=== PATIENT | female | born 2000 | race Caucasian/White ===

== ENCOUNTER 2022-01-27 09:06 | Emergency (ER) | payer OTHER ==
[~2022-01-27] VITALS: Ht 154.9 cm; Wt 61.2 kg
[2022-01-27 09:13] VITALS: BP 117/72
--- NOTE | 2022-01-27 09:27 | NUR ---
PT MOVED TO BED 12
--- NOTE | 2022-01-27 09:30 | NUR ---
21F presents to ED with c/o fevers, headache and back pain x3days, epigastric/ABD pain and N/V today. Pt reports a constant, throbbing like, 8/10 head pain, and a constant, sharp, 8/10 ABD and back pain. Pt reports unable to eat or drink anything today without vomiting. Pt states she took ibuprofen at 0500 today with no relief. Pt temp upon triage 101. Pt changed into gown and placed on bedside monitor.
[2022-01-27] MEDS ORDERED: NACL 0.9% 1,000 ML IV SCH (09:40)
[2022-01-27] MEDS ORDERED: KETOROLAC 30 MG/ML VIAL IVP ONE (09:40)
[2022-01-27] MEDS ORDERED: ONDANSETRON 4 MG/2 ML VIAL IVP ONE (09:40)
[2022-01-27] MEDS ORDERED: ACETAMINOPHEN EXTRA STRENGTH 500 MG TAB PO ONE (09:40)
[2022-01-27] MEDS ORDERED: DICYCLOMINE HCL LIQUID 20 MG, ALUMINUM HYD/MAG/SIMETHICONE 30 ML, LIDOCAINE VISCOUS 2% ... PO ONE ×3 (09:55)
--- NOTE | 2022-01-27 10:00 | NUR ---
Swabs and blood collected and walked to lab.
[2022-01-27] MEDS ORDERED: ALUMINUM HYD/MAG/SIMETHICONE 30 ML UDC ONE (10:11)
[2022-01-27] MEDS ORDERED: DICYCLOMINE HCL LIQUID 10 MG/5 ML UDC ONE (10:11)
[2022-01-27 10:29] LABS: BASOPHILS % (AUTO) 0.2 % (0.0-2.0); HEMATOCRIT 38.4 % (36-48); HEMOGLOBIN 12.9 g/dL (12.0-16.0); LYMPHOCYTES # (AUTO) 0.6 K/uL (2.5-16.5); LYMPHOCYTES % (AUTO) 5.4 % (20.5-51.1); MEAN CORPUSCULAR HEMOGLOBIN 29 pg (27-31); MEAN CORPUSCULAR HGB CONC 34 g/dL (33-37); MEAN CORPUSCULAR VOLUME 84.8 fL (80-94); MONOCYTES # (AUTO) 0.4 K/uL (0.8-1.0); MONOCYTES % (AUTO) 4.1 % (1.7-9.3); NEUTROPHILS # (AUTO) 9.4 K/uL (1.8-7.7); NEUTROPHILS % (AUTO) 90.3 % (42.2-75.2); PLATELET COUNT (AUTO) 272 K/uL (140-450); RED BLOOD CELL COUNT(AUTO) 4.53 MIL/uL (4.20-5.40); RED CELL DISTRIBUTION WIDTH 13.5 % (11.6-13.7); WHITE BLOOD COUNT (AUTO) 10.4 K/uL (4.5-11.0)
--- NOTE | 2022-01-27 10:30 | NUR ---
Pt states she is unable to provide urine at this time.
--- NOTE | 2022-01-27 10:48 | NUR ---
Pt ambulated with steady gait to restroom to provide urine sample.
[2022-01-27] MEDS ORDERED: KETOROLAC 30 MG/ML VIAL ONE (10:59)
[2022-01-27 11:00] LABS: FREE T4 (FREE THYROXINE) 1.01 ng/dL (0.76-1.46); THYROID STIMULATING HORMONE 0.53 uIU/mL (0.34-3.74)
--- NOTE | 2022-01-27 11:05 | NUR ---
Xray at bedside.
[2022-01-27 11:36] LABS: ANION GAP 14.4 (8-16); CARBON DIOXIDE 26.3 mmol/L (21-32); POTASSIUM 3.7 mmol/L (3.5-5.1)
[2022-01-27 11:37] LABS: CREATININE 0.9 mg/dL (0.6-1.3); TOTAL BILIRUBIN 0.3 mg/dL (0.0-1.0)
[2022-01-27 11:38] LABS: ALBUMIN 3.3 g/dL (3.4-5.0)
[2022-01-27 12:12] LABS: BILIRUBIN,URINE NEGATIVE (NEGATIVE); BLOOD, URINE 1+ (NEGATIVE); COLOR,URINE YELLOW (YELLOW); LEUKOCYTE ESTERASE ,URINE 1+ (NEGATIVE); NITRITE, URINE NEGATIVE (NEGATIVE); PH,URINE 7.5 (5.0-9.0); UGLUCOSE NEGATIVE (NEGATIVE)
[2022-01-27] MEDS ORDERED: ONDA-188 SL (12:12)
[2022-01-27] MEDS ORDERED: BEN10 PO (12:12)
[2022-01-27] MEDS ORDERED: BISM262C10 PO (12:12)
--- NOTE | 2022-01-27 12:18 | NUR ---
IV removed, catheter intact and site benign. Applied folded 4x4 gauze and tape to stop bleeding.
[2022-01-27 12:20] VITALS: BP 110/57
--- NOTE | 2022-01-27 12:20 | NUR ---
Patient discharged with v/s stable. Written and verbal after care instructions given and explained. Patient alert, oriented and verbalized understanding of instructions. Ambulatory with steady gait. All questions addressed prior to discharge. ID band removed. Patient advised to follow up with PMD. Rx of BENTYL, BISMATROL, ZOFRAN given. Patient educated on indication of medication including possible reaction and side effects. Opportunity to ask questions provided and answered.
[2022-01-27 12:27] LABS: APPEARANCE,URINE SLIGHTLY HAZY (CLEAR)
[2022-01-27 12:28] LABS: RBC,URINE 0-5 /HPF (0-5); WBC,URINE 20-60 /HPF (0-5)
[2022-01-27] MEDS ORDERED: CEPH-588 PO (12:51)
== END 2022-01-27 12:20 | disposition home or self-care (01) ==
LOC: MED 09:06
DX: N12 Tubulo-interstitial nephritis, not specified as acute or chronic (principal); Z20.822 Contact with and (suspected) exposure to COVID-19; R10.13 Epigastric pain; G44.209 Tension-type headache, unspecified, not intractable; M54.9 Dorsalgia, unspecified; Z79.899 Other long term (current) drug therapy
CPT/HCPCS: 36415; 71045; 80053; 81001; 81025; 82550; 83605; 83690; 84439; 84443; 85025; 87040; 87086; 87426; 87804; 93005; 96361; 96374; 96375; 99285; J1885; J2405; Q0092; J7030

== ENCOUNTER 2022-01-28 10:37 | Emergency (ER) | payer OTHER ==
[~2022-01-28] VITALS: Ht 162.6 cm; Wt 61.2 kg
[~2022-01-28 10:37] MED LIST: BEN10 PO; BISM262C10 PO; CEPH-588 PO; ONDA-188 SL
[2022-01-28 10:47] VITALS: BP 100/71
--- NOTE | 2022-01-28 10:56 | NUR ---
TO ER BED 5
[2022-01-28] MEDS ORDERED: ACETAMINOPHEN 325 MG TAB PO ONE (11:00)
[2022-01-28] MEDS ORDERED: ONDANSETRON 4 MG ODT PO ONE (11:20)
[2022-01-28] MEDS ORDERED: ONDANSETRON 4 MG/2 ML VIAL IVP ONE (11:35)
[2022-01-28] MEDS ORDERED: NACL 0.9% 1,000 ML IV ONE (11:35)
[2022-01-28] MEDS ORDERED: cefTRIAXone 1,000 MG VIAL ONE (12:09)
[2022-01-28 13:45] VITALS: BP 102/57
--- NOTE | 2022-01-28 13:45 | NUR ---
The patient's care was reviewed and supervised by Kiera Ray, RN, RN.
--- NOTE | 2022-01-28 13:45 | NUR ---
Patient discharged with v/s stable. Written and verbal after care instructions given. Patient verbalized understanding. Ambulatory with steady gait. All questions addressed prior to discharge. Advised to follow up with PMD.
[2022-01-28 14:21] LABS: APPEARANCE,URINE SL CLOUDY (CLEAR); BILIRUBIN,URINE NEGATIVE (NEGATIVE); BLOOD, URINE TRACE-I (NEGATIVE); COLOR,URINE YELLOW (YELLOW); LEUKOCYTE ESTERASE ,URINE NEGATIVE (NEGATIVE); NITRITE, URINE NEGATIVE (NEGATIVE); UGLUCOSE NEGATIVE (NEGATIVE)
[2022-01-28 14:35] LABS: WBC,URINE 0-5 /HPF (0-5)
[2022-01-28 14:36] LABS: OTHER CASTS, URINE None Seen /LPF (None Seen)
== END 2022-01-28 13:45 | disposition home or self-care (01) ==
LOC: MED 10:37
DX: N12 Tubulo-interstitial nephritis, not specified as acute or chronic (principal); Z20.822 Contact with and (suspected) exposure to COVID-19; R51.9 Headache, unspecified; R42 Dizziness and giddiness; R50.9 Fever, unspecified; Z79.899 Other long term (current) drug therapy
CPT/HCPCS: 81001; 81025; 87086; 87426; 87491; 87804; 96365; 96375; 99284; J0696; J2405; J7030

== ENCOUNTER 2022-05-25 14:02 | Emergency (ER) | payer OTHER ==
[~2022-05-25] VITALS: Ht 162.6 cm; Wt 64.0 kg
[2022-05-25 14:25] VITALS: BP 113/78
--- NOTE | 2022-05-25 14:51 | NUR ---
DR. YOON EVALUATING PATIENT AT BEDSIDE.
[2022-05-25] MEDS ORDERED: KETOROLAC 60 MG/2 ML VIAL IM ONE ×2 (14:55→15:00)
[2022-05-25] MEDS ORDERED: ONDANSETRON 4 MG ODT PO ONE (14:55)
[2022-05-25] MEDS ORDERED: ONDANSETRON 4 MG ODT ONE (15:00)
[2022-05-25] MEDS ORDERED: IBUP-2213 PO (15:11)
[2022-05-25] MEDS ORDERED: PRED20TA5 PO (15:11)
[2022-05-25] MEDS ORDERED: ONDA8TAB87 PO (15:11)
[2022-05-25] MEDS ORDERED: CIPR500T4 PO (15:11)
[2022-05-25 15:23] LABS: APPEARANCE,URINE CLEAR (CLEAR); BILIRUBIN,URINE NEGATIVE (NEGATIVE); BLOOD, URINE NEGATIVE (NEGATIVE); COLOR,URINE YELLOW (YELLOW); LEUKOCYTE ESTERASE ,URINE NEGATIVE (NEGATIVE); NITRITE, URINE NEGATIVE (NEGATIVE); UGLUCOSE NEGATIVE (NEGATIVE)
[2022-05-25 16:40] VITALS: BP 113/78
--- NOTE | 2022-05-25 17:40 | NUR ---
Patient discharged with v/s stable. Written and verbal after care instructions given and explained. Patient alert, oriented and verbalized understanding of instructions. Ambulatory with steady gait. All questions addressed prior to discharge. ID band removed. Patient advised to follow up with PMD. Rx of Cipro, Zofran, Prednisone, and Motrin given. Patient educated on indication of medication including possible reaction and side effects. Opportunity to ask questions provided and answered.
== END 2022-05-25 16:40 | disposition home or self-care (01) ==
LOC: MED 14:02
DX: R10.13 Epigastric pain (principal); R11.2 Nausea with vomiting, unspecified; R19.7 Diarrhea, unspecified; R05.9 Cough, unspecified
CPT/HCPCS: 81003; 81025; 96372; 99283; J1885; Q0162

== ENCOUNTER 2023-01-24 09:55 | Emergency (ER) | payer OTHER ==
[~2023-01-24] VITALS: Ht 162.8 cm; Wt 65.8 kg
[~2023-01-24 09:55] MED LIST changes: +CIPR500T4 PO; +IBUP-2213 PO; +ONDA8TAB87 PO; +PRED20TA5 PO
[2023-01-24 10:00] VITALS: BP 110/70; PULSE 74; RESP 18; TEMP 98.3; O2SAT 98
[2023-01-24 10:46] VITALS: O2SAT 98
[2023-01-24 11:15] LABS: APPEARANCE,URINE CLEAR (CLEAR); BILIRUBIN,URINE NEGATIVE (NEGATIVE); BLOOD, URINE NEGATIVE (NEGATIVE); COLOR,URINE YELLOW (YELLOW); LEUKOCYTE ESTERASE ,URINE NEGATIVE (NEGATIVE); NITRITE, URINE NEGATIVE (NEGATIVE); PROTEIN,URINE NEGATIVE (NEGATIVE); UGLUCOSE NEGATIVE (NEGATIVE); UROBILINOGEN,URINE 0.2 EU/dL (0.2 - 1)
[2023-01-24] MEDS ORDERED: PHENAZOPYRIDINE 100 MG TAB PO ONE (11:25)
[2023-01-24] MEDS ORDERED: ACET-10509 PO (11:25)
[2023-01-24] MEDS ORDERED: IBUPROFEN 800 MG TAB PO ONE (11:25)
[2023-01-24] MEDS ORDERED: PYR100 PO (11:25)
[2023-01-24] MEDS ORDERED: CEPH-588 PO (11:26)
[2023-01-24 11:47] VITALS: BP 110/70; PULSE 74; RESP 18; TEMP 98.3; O2SAT 98
== END 2023-01-24 11:42 | disposition home or self-care (01) ==
LOC: MED 09:55
DX: R30.0 Dysuria (principal); M54.50 Low back pain, unspecified; R10.30 Lower abdominal pain, unspecified; R39.15 Urgency of urination; R33.9 Retention of urine, unspecified; Z79.899 Other long term (current) drug therapy; Z79.2 Long term (current) use of antibiotics; Z79.1 Long term (current) use of non-steroidal anti-inflammatories (NSAID)
CPT/HCPCS: 81003; 81025; 99283

== ENCOUNTER 2023-06-01 15:50 | Emergency (ER) | payer OTHER ==
[~2023-06-01] VITALS: Ht 162.6 cm; Wt 72.6 kg
[~2023-06-01 15:50] MED LIST changes: +ACET-10509 PO; +PYR100 PO
[2023-06-01 15:54] VITALS: BP 132/81; PULSE 86; RESP 18; TEMP 97.4; O2SAT 98
[2023-06-01] MEDS: KETOROLAC 30 MG/ML VIAL IM ONE (17:06)
[2023-06-01 18:43] LABS: BASOPHILS % (AUTO) 0.2 % (0.0-2.0); EOSINOPHILS # (AUTO) 0.2 K/uL (0-0.4); EOSINOPHILS % (AUTO) 1.8 % (0.0-4.0); HEMOGLOBIN 13.4 g/dL (12.0-16.0); LYMPHOCYTES # (AUTO) 1.9 K/uL (2.5-16.5); LYMPHOCYTES % (AUTO) 15.8 % (20.5-51.1); MEAN CORPUSCULAR HEMOGLOBIN 29 pg (27-31); MEAN CORPUSCULAR HGB CONC 34 g/dL (33-37); MEAN CORPUSCULAR VOLUME 85.4 fL (80-94); MONOCYTES # (AUTO) 0.5 K/uL (0.8-1.0); MONOCYTES % (AUTO) 4.5 % (1.7-9.3); NEUTROPHILS # (AUTO) 9.4 K/uL (1.8-7.7); NEUTROPHILS % (AUTO) 77.7 % (42.2-75.2); PLATELET COUNT (AUTO) 304 K/uL (140-450); RED BLOOD CELL COUNT(AUTO) 4.68 MIL/uL (4.20-5.40); RED CELL DISTRIBUTION WIDTH 13.6 % (11.6-13.7)
[2023-06-01 18:57] LABS: ANION GAP 13.8 (8-16); CALCIUM 9.1 mg/dL (8.5-10.1); CARBON DIOXIDE 27.1 mmol/L (21-32); CREATININE 0.6 mg/dL (0.6-1.3); POTASSIUM 3.9 mmol/L (3.5-5.1)
[2023-06-01 19:10] LABS: ALBUMIN 4.1 g/dL (3.4-5.0); BILIRUBIN,DIRECT 0.1 mg/dL (0.0-0.3); TOTAL BILIRUBIN 0.5 mg/dL (0.0-1.0); TOTAL PROTEIN, SERUM 7.9 g/dL (6.4-8.2)
[2023-06-01 19:50] LABS: APPEARANCE,URINE CLEAR (CLEAR); BILIRUBIN,URINE NEGATIVE (NEGATIVE); BLOOD, URINE 2+ (NEGATIVE); COLOR,URINE YELLOW (YELLOW); LEUKOCYTE ESTERASE ,URINE 2+ (NEGATIVE); NITRITE, URINE NEGATIVE (NEGATIVE); PROTEIN,URINE NEGATIVE (NEGATIVE); UGLUCOSE NEGATIVE (NEGATIVE); UROBILINOGEN,URINE 0.2 EU/dL (0.2 - 1)
[2023-06-01 19:53] LABS: BACTERIA,URINE 10-30 (MOD) /HPF (None Seen); SQUAMOUS EPITHELIAL CELL,UR 0-3 (FEW) /LPF (0-3 (FEW))
[2023-06-01] MEDS ORDERED: CEPH-588 PO (21:03)
[2023-06-01] MEDS ORDERED: PYR100 PO (21:03)
[2023-06-01] MEDS ORDERED: IBUP-2213 PO (21:03)
== END 2023-06-01 21:36 | disposition home or self-care (01) ==
LOC: MED 15:50
DX: N39.0 Urinary tract infection, site not specified (principal); Z79.899 Other long term (current) drug therapy
CPT/HCPCS: 36415; 76856; 80048; 80076; 81001; 81025; 83690; 85025; 87086; 87491; 93976; 96372; 99285; J1885